=== PATIENT | female | born 1945 | race Caucasian/White ===

== ENCOUNTER 2018-09-15 12:18 | Emergency (ER) | payer MEDICARE, OTHER ==
[~2018-09-15] VITALS: Ht 152.4 cm; Wt 89.8 kg
--- NOTE | 2018-09-15 12:28 | ED General ---
General Chief Complaint: Upper Extremity Stated Complaint: FALL History of Present Illness Date Seen by Provider: Sep 15, 2018 Time Seen by Provider: 12:40 Initial Comments Patient is a 73-year-old female who lives at home with her . Today, she sustained a mechanical fall. She states she was walking through a doorway in her home and her foot became caught on something causing her to fall. She fell on the right side landing on the right elbow. She comes to the ER complaining of pain in the right humeral area. She did not strike her head or have loss of consciousness. She has no other complaints. No nausea vomiting or vision changes since the accident. The accident happened just earlier today. At baseline, this patient does have a cane and walker which she uses intermittently at home. She states she does not need these 100% of the time. She was not using one when she fell today. She did not eat or drink anything yet today. Patient does have a history of tobacco use. She is right-hand dominant. Patient arrives via ambulance. She was given 200 g of fentanyl intravenously in route to the hospital. Allergies and Home Medications Allergies Coded Allergies: Penicillins (Verified Allergy, Unknown, rash, 09/15/18) Home Medications Hydrocodone/Acetaminophen 1 Each Tablet, 1-2 TAB PO Q6H Prescribed by: CORNEL CABRERA on 09/15/18 1431 Patient Home Medication List Home Medication List Reviewed: Yes Review of Systems Review of Systems Constitutional: no symptoms reported EENTM: no symptoms reported Respiratory: no symptoms reported Cardiovascular: no symptoms reported Gastrointestinal: no symptoms reported Genitourinary: no symptoms reported Musculoskeletal: see HPI Skin: no symptoms reported Psychiatric/Neurological: No Symptoms Reported Physical Exam Vital Signs Vital Signs - First Documented 09/15/18 12:18 Temp 96.6 Pulse 74 Resp 20 B/P (MAP) 145/50 (81) Pulse Ox 100 Capillary Refill : Height, Weight, BMI Height: '" Weight: lbs. oz. kg; BMI Method: General Appearance: No Apparent Distress, WD/WN HEENT: PERRL/EOMI, Normal ENT Inspection Neck: Full Range of Motion, Normal Inspection, Non Tender Respiratory: Lungs Clear Cardiovascular: Regular Rate, Rhythm Gastrointestinal: Soft Back: Normal Inspection, No CVA Tenderness Extremity: Normal Capillary Refill, Normal Inspection, Other (patient arrives with arm swath in place. Sensation light touch is intact over all dermatomes in the right upper extremity. Distal pulses are 2+. Capillary refill is less than 2 seconds. Patient has point tenderness over the mid and proximal humerus. No tenderness over the elbow.) Progress/Results/Core Measures Suspected Sepsis SIRS Temperature: Pulse: Respiratory Rate: Blood Pressure / Mean: Results/Orders My Orders Orders - CORNEL CABRERA DO Humerus 2 View Right (09/15/18 12:32) Morphine Injection (Morphine Injection (09/15/18 12:39) Elbow 3 View Right (09/15/18 13:07) Shoulder 2 View Right (09/15/18 13:07) Morphine Injection (Morphine Injection (09/15/18 13:22) Vital Signs/I&O 09/15/18 12:18 Temp 96.6 Pulse 74 Resp 20 B/P (MAP) 145/50 (81) Pulse Ox 100 Capillary Refill : Progress Note : Time: 14:12 Progress Note ED Summary: Patient evaluated in the emergency department for a fall and pain in the right humerus. X-ray reports reveal a fracture of the proximal humerus with the humeral head being mildly inferiorly displaced. I spoke to the orthopedist extrusion press adjuster, Dr. Farrell, who did review the films. Recommended following up with shoulder specialist, Dr. Tsang, at [facility]. I did contact this office. The phone number is [phone]. I spoke to Dr. Tsang' nurse. The patient has a scheduled follow-up appointment tomorrow at 14:00. Patient was placed in a sling. Prescription for pain medication is provided. Patient is advised of the increased risk of falling while taking pain medications. She is discharged to home and advised to keep her arm in the sling between now and her follow-up appointment. Return to this ER or go directly to [facility] for any new or worsening symptoms or if she expresses anything she thinks to be a complication of her injury. CVAs are placed on a disc and sent with the patient to include x-rays and x-ray reports. Departure Impression Primary Impression: Fracture of humerus Disposition: HOME, SELF-CARE Condition: Improved Departure-Patient Inst. Patient Instructions: How to Use a Shoulder Sling Scripts Hydrocodone/Acetaminophen ([place] 5-325 Tablet) 1 Each Tablet 1-2 TAB PO Q6H for Pain MDD 10 TABS, #20 TAB Prov: CORNEL CABRERA DO 09/15/18 CORNEL CABRERA DO Sep 15, 2018 12:28
[2018-09-15] MEDS ORDERED: morphine INJ 10 MG/ML 1ML (SYR OR VIAL) IVP STA ×3 (12:39→13:22)
--- NOTE | 2018-09-15 13:17 | Diagnostic Imaging Report ---
INDICATION: Fall. Pain. COMPARISON: None. FINDINGS: Multiple radiographic views of the right humerus were obtained. There is acute-appearing obliquely oriented fracture extending through the humeral head. Fracture line extends superolaterally inferiorly through the medial cortex. There is also abnormal proximal subluxation of the distal fracture fragment. Humeral head also resides abnormally inferiorly in respect to the glenoid. No unexpected radiopaque foreign bodies are seen. Included portions of the right hemithorax are clear. IMPRESSION: 1. Acute fracture and dislocation of the proximal right humerus. Dictated by: Dictated on workstation # [id number]
--- NOTE | 2018-09-15 13:55 | Diagnostic Imaging Report ---
INDICATION: Fall with right shoulder pain. TIME OF EXAMINATION: 12:58 PM. FINDINGS: Two views of the right shoulder demonstrate a comminuted fracture of the proximal humerus. The dominant fracture fragment arising from the humeral head does show some slight inferior displacement and medial displacement. The acromioclavicular alignment is maintained. No other fractures are seen. IMPRESSION: Comminuted proximal humerus fracture. Dictated by: Dictated on workstation # [id number]
--- NOTE | 2018-09-15 13:56 | Diagnostic Imaging Report ---
Indication: Fall with right elbow pain. Time of exam 1:13 PM Multiple views of the right elbow are obtained. The alignment appears normal. No fracture, dislocation or effusion is seen. Impression: No acute bony abnormality is detected. Dictated by: Dictated on workstation # [id number]
[2018-09-15] MEDS ORDERED: HYDR-4226 PO (14:31)
[2018-09-15 14:41] VITALS: BP 145/70
== END 2018-09-15 14:45 | disposition home or self-care (01) ==
LOC: ER FS 12:21
DX: S42.201A Unspecified fracture of upper end of right humerus, initial encounter for closed fracture (principal); Z88.0 Allergy status to penicillin; W23.1XXA Caught, crushed, jammed, or pinched between stationary objects, initial encounter
CPT/HCPCS: 73030; 73060; 73080; 96374

== ENCOUNTER 2019-01-19 21:54 | Emergency (ER) | payer MEDICARE ==
[~2019-01-19] VITALS: Ht 152.4 cm; Wt 90.7 kg
[~2019-01-19 21:54] MED LIST: HYDR-4226 PO
--- OUTSIDE RECORDS SUMMARY | 2019-01-19 21:58 | XMS REPORT | Continuity of Care Document ---
Author Organization Unknown Address Unknown Phone Unavailable Allergies There is no data. Medications There is no data. Problems There is no data. Procedures There is no data. Results There is no data. Encounters ACCT No. Visit Date/Time Discharge Status Pt. Type Provider Facility Loc./Unit Complaint [id number] 01/13/2019 13:20:00 01/13/2019 23:59:59 [facility]
[2019-01-19] MEDS ORDERED: ONDANSETRON 4 MG/2 ML (SDV) Z0FRAN IVP ONE ×2 (22:30→23:45)
[2019-01-19] MEDS ORDERED: fentaNYL INJECTION 100 MCG/2 ML AMP IVP ONE (22:30)
[2019-01-19 22:35] LABS: HEMOGLOBIN 13.5 G/DL (11.5-16.0); MEAN CORPUSCULAR HEMOGLOBIN 29 PG (25-34); WHITE BLOOD COUNT 12.1 10^3/uL (4.3-11.0)
[2019-01-19 22:36] LABS: BASOPHILS % (AUTO) 0 % (0-10); EOSINOPHILS % (AUTO) 1 % (0-10); HEMATOCRIT 42 % (35-52); LYMPHOCYTES % (AUTO) 16 % (12-44); MEAN CORPUSCULAR HGB CONC 32 G/DL (32-36); MEAN CORPUSCULAR VOLUME 93 FL (80-99); MEAN PLATELET VOLUME 9.5 FL (7.4-10.4); MONOCYTES % (AUTO) 5 % (0-12); NEUTROPHILS # (AUTO) 9.4 X 10^3 (1.8-7.8); NEUTROPHILS % (AUTO) 77 % (42-75); PLATELET COUNT 241 10^3/uL (130-400); RED CELL DISTRIBUTION WIDTH 14.6 % (10.0-14.5)
[2019-01-19 22:37] LABS: BASOPHILS # (AUTO) 0.1 10^3/uL (0.0-0.1); EOSINOPHILS # (AUTO) 0.6 10^3/uL (0.0-0.3); LYMPHOCYTES # (AUTO) 1.9 X 10^3 (1.0-4.0); MONOCYTES # (AUTO) 0.7 X 10^3 (0.0-1.0)
[2019-01-19 23:14] LABS: CHLORIDE 99 MMOL/L (98-107); POTASSIUM 4.1 MMOL/L (3.6-5.0); SODIUM 141 MMOL/L (135-145)
[2019-01-19 23:15] LABS: ALANINE AMINOTRANSFERASE 5 U/L (0-55); ALKALINE PHOSPHATASE 120 U/L (40-136); BILIRUBIN,TOTAL 0.4 MG/DL (0.1-1.0); BUN/CREATININE RATIO 16; CALCIUM 9.2 MG/DL (8.5-10.1); CARBON DIOXIDE 26 MMOL/L (21-32); CREATININE SERUM 1.06 MG/DL (0.60-1.30); GFR ESTIMATED 51; GLUCOSE 119 MG/DL (70-105); TOTAL PROTEIN 7.3 GM/DL (6.4-8.2)
[2019-01-19 23:16] LABS: ALBUMIN 4.2 GM/DL (3.2-4.5)
[2019-01-19] MEDS ORDERED: cefTRIAXone FOR IV USE 1,000 MG in WATER (STERILE) FOR INJECTION 10 ML IV ONE (23:30)
[2019-01-19] MEDS ORDERED: FUROSEMIDE 40 MG/4 ML INJ (LASIX) IVP ONE (23:30)
[2019-01-19] MEDS ORDERED: morphine INJ 10 MG/ML 1ML (SYR OR VIAL) IVP STA (23:40)
[2019-01-20 00:05] VITALS: BP 155/90
--- NOTE | 2019-01-20 00:13 | ED Lower Extremity ---
General Chief Complaint: Trauma-Non Activation Stated Complaint: FALL Nursing Triage Note: PT FELL ON PORCH AT HOME, COMPLAINING OF RIGHT LE PAIN Nursing Sepsis Screen: No Definite Risk Source: patient Exam Limitations: no limitations History of Present Illness Date Seen by Provider: Jan 19, 2019 Time Seen by Provider: 10:00 Initial Comments Patient is 73-year-old female history of congestive heart failure presents with accidental fall from standing with left lower extremity pain, tenderness and swelling. Patient states she tripped. Denies hitting her head, loss of consciousness, headache or neck pain. Patient reports bilateral swelling of lower extremities. EMS was called for a lift assist. Patient is also complaining of increased bilateral leg swelling. States she's ran out of her water pills 1 week ago has not followed up with her primary care physician. Patient noted to have erythroderma bilateral lower extremities 2+ pitting edema, right greater than left. Patient denies fever chills, nausea vomiting or sweats. Denies chest pain, shortness of breath. No other acute symptoms or complaints. Onset: just prior to arrival Pain/Injury Location: right leg Method of Injury: fell Allergies and Home Medications Allergies Coded Allergies: Penicillins (Verified Allergy, Unknown, rash, 09/15/18) Home Medications Hydrocodone/Acetaminophen 1 Each Tablet, 1-2 TAB PO Q6H Prescribed by: CORNEL CABRERA on 09/15/18 1431 Patient Home Medication List Home Medication List Reviewed: Yes Review of Systems Constitutional: see HPI EENTM: see HPI Respiratory: see HPI Cardiovascular: see HPI Gastrointestinal: no symptoms reported Genitourinary: no symptoms reported Musculoskeletal: see HPI Skin: see HPI Psychiatric/Neurological: See HPI Past Dxjliev-Huridp-Nmskdy Hx Past Med/Social Hx: Reviewed Nursing Past Med/Soc Hx Patient Social History Type Used: Cigarettes 2nd Hand Smoke Exposure: No Recent Foreign Travel: No Contact w/Someone Who Travel: No Recent Infectious Disease Expo: No Recent Hopitalizations: No Physical Abuse: No Sexual Abuse: No Mistreated: No Past Medical History Surgeries: Yes Breast, Hysterectomy Respiratory: Yes COPD Cardiac: No Neurological: No Genitourinary: No Gastrointestinal: No Musculoskeletal: No Endocrine: No HEENT: No Cancer: No Psychosocial: No Integumentary: No Blood Disorders: No Physical Exam Vital Signs Vital Signs - First Documented 01/19/19 22:11 Temp 98.1 Pulse 100 Resp 24 B/P (MAP) 149/98 (115) Pulse Ox 100 O2 Delivery Room Air Capillary Refill : Less Than 3 Seconds Height, Weight, BMI Height: 5'0" Weight: 200lbs. oz. 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/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 as tested, no motor/sensory deficits, oriented x 3 Skin: other (Dmitriy Lara lower extremities,) Progress/Results/Core Measures Results/Orders Lab Results Laboratory Tests Test 01/19/19 22:09 Range/Units White Blood Count 12.1 H 4.3-11.0 10^3/uL Red Blood Count 4.58 4.35-5.85 10^6/uL Hemoglobin 13.5 11.5-16.0 G/DL Hematocrit 42 35-52 % Mean Corpuscular Volume 93 80-99 FL Mean Corpuscular Hemoglobin 29 25-34 PG Mean Corpuscular Hemoglobin Concent 32 32-36 G/DL Red Cell Distribution Width 14.6 H 10.0-14.5 % Platelet Count 241 130-400 10^3/uL Mean Platelet Volume 9.5 7.4-10.4 FL Neutrophils (%) (Auto) 77 H 42-75 % Lymphocytes (%) (Auto) 16 12-44 % Monocytes (%) (Auto) 5 0-12 % Eosinophils (%) (Auto) 1 0-10 % Basophils (%) (Auto) 0 0-10 % Neutrophils # (Auto) 9.4 H 1.8-7.8 X 10^3 Lymphocytes # (Auto) 1.9 1.0-4.0 X 10^3 Monocytes # (Auto) 0.7 0.0-1.0 X 10^3 Eosinophils # (Auto) 0.6 H 0.0-0.3 10^3/uL Basophils # (Auto) 0.1 0.0-0.1 10^3/uL Sodium Level 141 135-145 MMOL/L Potassium Level 4.1 3.6-5.0 MMOL/L Chloride Level 99 98-107 MMOL/L Carbon Dioxide Level 26 21-32 MMOL/L Anion Gap 16 H 5-14 MMOL/L Blood Urea Nitrogen 17 7-18 MG/DL Creatinine 1.06 0.60-1.30 MG/DL Estimat Glomerular Filtration Rate 51 BUN/Creatinine Ratio 16 Glucose Level 119 H 70-105 MG/DL Calcium Level 9.2 8.5-10.1 MG/DL Corrected Calcium 9.0 8.5-10.1 MG/DL Total Bilirubin 0.4 0.1-1.0 MG/DL Aspartate Amino Transf (AST/SGOT) 14 5-34 U/L Alanine Aminotransferase (ALT/SGPT) 5 0-55 U/L Alkaline Phosphatase 120 40-136 U/L Troponin I < 0.30 <0.30 NG/ML Pro-B-Type Natriuretic Peptide 279.4 H <75.0 PG/ML Total Protein 7.3 6.4-8.2 GM/DL Albumin 4.2 3.2-4.5 GM/DL My Orders Orders - JONNATHAN VELÁSQUEZ DO Cbc With Automated Diff (01/19/19 22:25) Comprehensive Metabolic Panel (01/19/19 22:25) Blood Culture (01/19/19 22:25) Blood Culture (01/19/19 22:25) Probnp Fs (01/19/19 22:25) Troponin I (01/19/19 22:25) Ekg Tracing (01/19/19 22:25) Chest 1 View Ap/Pa Only (01/19/19 22:25) Tibia Fibula 2 View Right (01/19/19 22:25) Fentanyl Injection (Sublimaze Injection (01/19/19 22:30) Ondansetron Injection (Zofran Injectio (01/19/19 22:30) Furosemide Injection (Lasix Injection) (01/19/19 23:30) Ceftriaxone For Iv Use (Rocephin For I (01/19/19 23:30) Morphine Injection (Morphine Injection (01/19/19 23:40) Ondansetron Injection (Zofran Injectio (01/19/19 23:45) Medications Given in ED Current Medications Medications Dose Ordered Sig/Angélica Route Start Time Stop Time Status Last Admin Dose Admin Fentanyl Citrate 50 mcg ONCE ONCE IVP 01/19/19 22:30 01/19/19 22:34 DC 01/19/19 22:42 50 MCG Ondansetron HCl 4 mg ONCE ONCE IVP 01/19/19 22:30 01/19/19 22:34 DC 01/19/19 22:44 4 MG Vital Signs/I&O 01/19/19 22:11 Temp 98.1 Pulse 100 Resp 24 B/P (MAP) 149/98 (115) Pulse Ox 100 O2 Delivery Room Air Blood Pressure Mean: 115 Departure Communication (Admissions) No obvious displaced fracture on x-ray., Lab, EKG imaging studies reviewed. Patient given Lasix, antibiotics for soft tissue infection and pain medication. Patient able to walk with walker and transition to wheelchair. Patient has both a wheelchair and walker at home. Recommend continued supportive care, watchful waiting and close PCP follow-up. Return cautions reviewed. Patient and family verbalizes understanding and agreement discharge instructions prior to departure Impression Primary Impression: Contusion of right calf Additional Impressions: Peripheral edema Cellulitis of left leg Cellulitis of right leg Disposition: HOME, SELF-CARE Condition: Stable Departure-Patient Inst. Referrals: NO,LOCAL PHYSICIAN (PCP/Family) Primary Care Physician Patient Instructions: Contusion (DC), Cellulitis (Skin Infection), Adult (DC), Swelling Add. Discharge Instructions: Please take medications as directed and follow-up with your PCP and manager epic next 7-10 days for reevaluation. Use walker and wheelchair at all times with assistance as needed. Return to the ED if new or worsening symptoms All discharge instructions reviewed with patient and/or family. Voiced understanding. Scripts Hydrocodone/Acetaminophen ([place] 5-325 Tablet) 1 Each Tablet 1 TAB PO Q4-6HR for Pain MDD 10 TABS for 7 Days, #15 TAB Prov: JONNATHAN VELÁSQUEZ DO 01/20/19 Clindamycin HCl (Clindamycin HCl) 300 Mg Capsule 300 MG PO TID, #45 CAP Prov: JONNATHAN VELÁSQUEZ DO 01/20/19 Potassium Chloride (Potassium Chloride) 20 Meq Tablet.er 20 MEQ PO DAILY, #30 TAB Prov: JONNATHAN VELÁSQUEZ DO 01/20/19 Furosemide (Lasix) 80 Mg Tablet 80 MG PO BID, #30 TAB Prov: JONNATHAN VELÁSQUEZ DO 01/20/19 JONNATHAN VELÁSQUEZ DO Jan 20, 2019 00:12
[2019-01-20] MEDS ORDERED: HYDR-4226 PO (00:22)
[2019-01-20] MEDS ORDERED: CLIN300C11 PO (00:22)
[2019-01-20] MEDS ORDERED: FURO80TA83 PO (00:22)
[2019-01-20] MEDS ORDERED: POTA-51 PO (00:22)
--- NOTE | 2019-01-20 07:40 | Diagnostic Imaging Report ---
INDICATION: Fell from porch. Right leg pain. FINDINGS: Right tibia and fibula. 3 views. The ankle is not well evaluated as a true AP view is not obtained. No fractures are demonstrated. No dislocations are seen. IMPRESSION: Negative limited tibia and fibula. The ankle joint is suboptimally visualized. Dictated by: Dictated on workstation # [id number]
--- NOTE | 2019-01-20 07:40 | Diagnostic Imaging Report ---
INDICATION: Fell off porch at home, complaining of right leg pain since. FINDINGS: A frontal view chest demonstrates the heart size to be at the upper normal with mild calcification of the aorta. The lungs are clear. No pleural effusion or fractures identified. Right shoulder prosthesis is present. IMPRESSION: There are no acute findings. Dictated by: Dictated on workstation # [id number]
== END 2019-01-20 00:39 | disposition home or self-care (01) ==
LOC: ER FS 21:54 → EDUNIT# 21:54 → ER FS 01-20 00:39
DX: S80.11XA Contusion of right lower leg, initial encounter (principal); L03.115 Cellulitis of right lower limb; L03.116 Cellulitis of left lower limb; R60.0 Localized edema; I50.9 Heart failure, unspecified; J44.9 Chronic obstructive pulmonary disease, unspecified; Z90.710 Acquired absence of both cervix and uterus; Z88.0 Allergy status to penicillin; W01.0XXA Fall on same level from slipping, tripping and stumbling without subsequent striking against object, initial encounter; Y92.009 Unspecified place in unspecified non-institutional (private) residence as the place of occurrence of the external cause
CPT/HCPCS: 36415; 71045; 73590; 80053; 83880; 84484; 85025; 87040; 93005; 96374; 96375; 96376

== ENCOUNTER 2019-01-21 19:04 | Emergency (ER) | payer MEDICARE ==
[~2019-01-21] VITALS: Ht 152.4 cm; Wt 90.7 kg
[~2019-01-21 19:04] MED LIST changes: +CLIN300C11 PO; +FURO80TA83 PO; +POTA-51 PO
--- NOTE | 2019-01-21 19:11 | ED Upper Extremity ---
General Stated Complaint: PT FELL AT HOME Source: patient, EMS History of Present Illness Date Seen by Provider: Jan 21, 2019 Time Seen by Provider: 19:05 Initial Comments 73-year-old female brought in following a fall. Patient reports that she was going down some stairs and fell into a trashcan. Patient was stuck in trashcan for approximately 20 minutes. Patient's buttock went to the trashcan and she was folded up and half. Patient complains of pain in her hip and back. Patient also has cellulitis of her right leg which she was seen here a few days ago and is currently on treatment. There is no acute changes to this. Patient denies any new complaints at this time. Patient does have chronic pain in which she is states she is having pain with.. Allergies and Home Medications Allergies Coded Allergies: Penicillins (Verified Allergy, Unknown, rash, 09/15/18) Home Medications Clindamycin HCl 300 Mg Capsule, 300 MG PO TID Prescribed by: JONNATHAN VELÁSQUEZ on 01/20/1921 Furosemide 80 Mg Tablet, 80 MG PO BID Prescribed by: JONNATHAN VELÁSQUEZ on 01/20/1921 Hydrocodone/Acetaminophen 1 Each Tablet, 1-2 TAB PO Q6H Prescribed by: CORNEL CABRERA on 09/15/18 1431 Hydrocodone/Acetaminophen 1 Each Tablet, 1 TAB PO Q4-6HR Prescribed by: JONNATHAN VELÁSQUEZ on 01/20/1921 Potassium Chloride 20 Meq Tablet.er, 20 MEQ PO DAILY Prescribed by: JONNATHAN VELÁSQUEZ on 01/20/1921 Patient Home Medication List Home Medication List Reviewed: Yes Review of Systems Constitutional: No chills, No fever Respiratory: No cough Cardiovascular: No chest pain Gastrointestinal: No abdominal pain, No nausea, No vomiting Musculoskeletal: see HPI Skin: see HPI Past Uzosgdw-Agkgbl-Vqzpdi Hx Past Med/Social Hx: Reviewed Nursing Past Med/Soc Hx Patient Social History Type Used: Cigarettes 2nd Hand Smoke Exposure: No Recent Foreign Travel: No Contact w/Someone Who Travel: No Recent Hopitalizations: No Past Medical History Surgeries: Yes Breast, Hysterectomy Respiratory: Yes COPD Cardiac: No Neurological: No Genitourinary: No Gastrointestinal: No Musculoskeletal: No Endocrine: No HEENT: No Cancer: No Psychosocial: No Integumentary: No Blood Disorders: No Physical Exam Vital Signs Vital Signs - First Documented 01/21/19 19:16 Temp 98.7 Pulse 120 Resp 24 B/P (MAP) 156/82 (106) Pulse Ox 100 O2 Delivery Room Air Capillary Refill : Height, Weight, BMI Height: 5'0" Weight: 200lbs. oz. 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 Patient's other complaints or all based on her chronic pain and chronic issues that are being managed outpatient. Patient will be discharged home in stable condition and should follow-up with her primary care provider as needed. Departure Impression Primary Impression: Fall from standing Qualified Codes: W19.XXXA - Unspecified fall, initial encounter Additional Impression: Cellulitis of right leg Disposition: HOME, SELF-CARE Condition: Stable Departure-Patient Inst. Referrals: NO,LOCAL PHYSICIAN (PCP/Family) Primary Care Physician Patient Instructions: Preventing Falls Add. Discharge Instructions: Continue already prescribed medication LA LANDERS DO Jan 21, 2019 19:11
--- OUTSIDE RECORDS SUMMARY | 2019-01-21 19:32 | XMS REPORT | Continuity of Care Document ---
Author Organization Unknown Address Unknown Phone Unavailable Allergies There is no data. Medications There is no data. Problems There is no data. Procedures There is no data. Results There is no data. Encounters ACCT No. Visit Date/Time Discharge Status Pt. Type Provider Facility Loc./Unit Complaint [id number] 01/13/2019 13:20:00 01/13/2019 23:59:59 [facility]
[2019-01-21] MEDS ORDERED: KETOROLAC 30 MG/ML VIAL IM STA (19:33)
--- NOTE | 2019-01-21 19:44 | Diagnostic Imaging Report ---
INDICATION: Fall, pain. FINDINGS: There is partial sacralization of the L5 segment. There is L5 on S1 grade 1 anterolisthesis with advanced L5-S1 spondylosis. There is bony demineralization but no definite endplate fracture or acute abnormality. IMPRESSION: Lumbosacral spondylosis and grade 1 listhesis. Underlying bony demineralization with no convincing evidence for an acute abnormality. Dictated by: Dictated on workstation # [id number]
--- NOTE | 2019-01-21 19:46 | Diagnostic Imaging Report ---
INDICATION: Fall, pain FINDINGS: AP pelvis and two-view bilateral hips performed showed no fracture or dislocation. The pelvic ring is intact. The symphysis and SI joints intact. No avulsion or other fracture pattern. IMPRESSION: No acute appearing bony abnormality Dictated by: Dictated on workstation # [id number]
[2019-01-21 20:04] VITALS: BP 156/82
== END 2019-01-21 20:04 | disposition home or self-care (01) ==
LOC: EDUNIT# 19:04 → ER FS 19:05
DX: L03.115 Cellulitis of right lower limb (principal); M54.9 Dorsalgia, unspecified; M25.559 Pain in unspecified hip; J44.9 Chronic obstructive pulmonary disease, unspecified; Z88.0 Allergy status to penicillin; Z90.710 Acquired absence of both cervix and uterus; W10.9XXA Fall (on) (from) unspecified stairs and steps, initial encounter
CPT/HCPCS: 72100; 73522; 96372